=== PATIENT | female | born 1955 | race Caucasian/White ===

== ENCOUNTER 2016-05-23 08:26 | Day surgery (SDC) | payer BC ==
[~2016-05-23] VITALS: Ht 157.5 cm; Wt 83.0 kg
[~2016-05-23 08:26] MED LIST: ATOR40TA68 PO; IBUP400T22 PO; LISI1TAB6 PO; LORA0.5T PO; OXYB10TA PO; VIT D2
[2016-05-23 10:29] VITALS: Ht 157.5 cm; Wt 83.0 kg
[2016-05-23] MEDS ORDERED: PREMVAG VAG (10:36)
[2016-05-23] MEDS ORDERED: CALC-516 PO (10:36)
[2016-05-23 10:55] VITALS: BP 122/67; PULSE 65; RESP 24
[2016-05-23] MEDS ORDERED: PROPOFOL 60 ML ONE (11:07)
[2016-05-23] MEDS ORDERED: LIDOCAINE 2% (SDV) 5 ML INJ ONE (11:07)
[2016-05-23 12:06] VITALS: BP 118/65; PULSE 64; RESP 15
--- NOTE | 2016-05-23 21:30 | GILP ---
DATE OF PROCEDURE: PROCEDURE: EGD with biopsy and colonoscopy. INDICATION: A 61-year-old female undergoing this procedure for epigastric pain for the last few mon ths and colon cancer screening. The risks of the procedure, related and unrelated complications, an esthetic risks, alternatives discussed and informed consent was obtained. DESCRIPTION OF PROCEDURE: The patient was brought to the GI lab, sedated by Dr. Recinos, after optimum sedation, scope was passed with much ease into esophagus which was grossly within normal limits. Z line was at 35 cm which was regular, no varicose vein identified. Stomach mucosa revealed chronic gastritis and there were a few red colored coffee-ground colored spots identified in the body of the stomach. Duodenum, first and second part was within normal limits. Stomach also revealed chronic gastritis. Multiple biopsies obtained for H. pylori infection. Retroversion done, no growth was se en. Scope was removed with good patient tolerance. IMPRESSION 1. Normal esophagus. 2. No varicose vein. 3. Z line regular at 35 cm. 4. Chronic gastritis with multiple coffee ground colored spots. 5. Normal duodenal bulb and the second part ampulla also appeared normal. PLAN: To review histopathology. COLONOSCOPY REPORT: She was turned around, scope was passed with much ease into rectum, advanced th rough sigmoid, transverse colon all the way into cecum. Appendiceal orifice and IC valve identified . While coming out, mucosa thoroughly inspected, polyp was identified in the transverse colon which was 1.2 cm in diameter, sessile in nature, successfully removed by cold snare technique. Polyp was retrieved. There was another polyp in the neighborhood again 1 cm in diameter, sessile, successful ly removed by cold snare technique. The rest of the colon appeared normal. There was a hemorrhoid and skin tag. IMPRESSION: 1. Two polyps successfully removed by cold snare technique from the transverse colon, 1 cm and then 1.2 cm. 2. Negative all the way into cecum. 3. Clarity was good and cleanliness was adequate. 4. Skin tag and small hemorrhoids. PLAN: Review the histopathology of the polyp, if nonhyperplastic then patient definitely needs a co lonoscopy in 5 year. Dictated By: CHRIS MAYES/SUSANNE Conf#: [id number] DID#: [id number]
== END 2016-05-23 14:08 | disposition home or self-care (01) ==
LOC: GIL 08:26
PROVIDERS: ATTEND Internal Medicine Gastroenterology
DX: Z12.11 Encounter for screening for malignant neoplasm of colon (principal); D12.3 Benign neoplasm of transverse colon; K29.50 Unspecified chronic gastritis without bleeding; K64.9 Unspecified hemorrhoids; K64.4 Residual hemorrhoidal skin tags; I10 Essential (primary) hypertension
CPT/HCPCS: 43239; 45385; 88305; 88312; Z7610